=== PATIENT | male | born 1950 | race Caucasian/White ===

== ENCOUNTER → 2016-09-14 | Outpatient (CLI) | payer MEDICARE, OTHER ==
[~2016-09-14] MED LIST: ASPIRIN EC81 MG PO; AVODART0.5 MG PO; COLACE100 MG PO; COZAAR100 MG PO; CYMBALTA30 MG PO; CYMBALTA60 MG PO; EFFEXOR XR75 MG PO; GLUCOPHAGE XR500 M1 PO; HYZAAR 100-251 EACH PO; PERCOCET 5-3251 EACH PO; PRILOSEC20 MG PO; TOPROL XL25 MG PO; TYLENOL EXTRA500 MG PO
== END | disposition disaster alternative care site (69) ==
LOC: GRAD 10:55
DX: C64.9 Malignant neoplasm of unspecified kidney, except renal pelvis (principal); R91.8 Other nonspecific abnormal finding of lung field

== ENCOUNTER 2016-10-14 07:42 | Outpatient (CLI) | payer MEDICARE, OTHER ==
[~2016-10-14] VITALS: Ht 180.3 cm; Wt 93.7 kg
--- NOTE | ~2016-10-14 | CATH ---
Cardiac Diagnostic Report Demographics Patient Name LINA Diaz Gender Male Date of 1950 Age 66 year(s) Patient Number [id number] Date of Study 10/14/2016 Visit Number [id number] Room Number G6399 Corporate ID Ht 180.34 cm Wt 93.4 kg Referring Jamarcus Saini MD Primary Physician Physician Performing Yerra Secondary Physician Physician Rosio Diagnostic Aldairrra Assisting Physician Physician Rosio Interventional Physician Hydro Technician Physician Findings and Conclusions Diagnostic Findings and Conclusion Left Main: No significant epicardial disease LAD: Proximal 20% stenosis L Cx: Dominant large caliber vessel. Proximal circumflex artery appears ectatic. RCA: non dominant. No significant epicardial disease Slow flow was noted in all 3 vessels. Diagnostic Recommendations CAD risk factor medication. Procedure Description The patient was brought to the diagnostic cardiac catheterization-EP laboratory in the fasting, non-sedated state. Informed consent was obtained in the written and verbal form after the risks and benefits were explained. The patient had no further questions and agreed to proceed. The planned puncture-incision site(s) were shaved and prepped with ChloraPrep and draped in the usual sterile manner. Conscious sedation, supplemental oxygen, and pain control medications were delivered by a registered nurse under physician guidance. Surface ECG rhythm, blood pressure measurement, and pulse oximetry were monitored throughout the procedure. Arterial access. The access site on right wrist was infiltrated with lidocaine. The vessel was entered with the Seldinger technique. A sheath was advanced into the vessel and used for catheter placement. Selective left coronary angiography. A catheter was advanced into the left coronary vessel ostium under Fluoroscopic guidance. Contrast was injected by hand. Images were obtained in multiple projections. Selective right coronary angiography. A catheter was advanced into the right coronary vessel ostium under fluoroscopic guidance. Contrast was injected by hand. Images were obtained in multiple projections. Arterial artery hemostasis was achieved. The patient was transferred to a regular nursing floor via cart accompanied by a nurse. The patient left the laboratory in stable condition. Diagnostic Cath Status: Elective Procedure Procedure Type Diagnostic procedure:Angiography:, Coronary Angios Indications: Chest pain. The procedure was explained in detail to the patient. Risks, complications and alternative treatments were reviewed. Written consent was obtained. Medications Reviewed with Patient prior to Procedure. Angiographic Findings Dominance: Left Cardiac Arteries and Lesion Findings LMCA: Normal (0% Stenosis).OK - slow flow LAD: Proximal 20%-slow flow Lesion on Prox LAD: Proximal subsection.20% stenosis . LCx: Proxiaml ectatic large caliber- slow flow RCA: Non dominant, slow flow Coronary Tree Procedure Data Procedure Date Date: 10/14/2016Start: 09:53 AMEnd: 10:21 AM Entry Locations - Retrograde Percutaneous access was performed through the Right Radial artery (Primary location). A 6 Fr sheath was inserted. Hemostasis was successfully obtained using Mechanical Compression. Closure Comments: 13cc's of air in R-band applied by Oscar Oliver Procedure Medications Order and Administration + + + + + !Time !Medication !Dosage !Route ! + + + + + !10/14/2016 09:47 AM !Versed !1 mg !I.V. ! + + + + + !10/14/2016 09:52 AM !Oxygen !2 l/min !NC ! + + + + + !10/14/2016 09:59 AM !Radial Nitroglycerin !200 mcg !I.A. ! + + + + + !10/14/2016 09:59 AM !Radial Verapamil !2.5 mg !I.A. ! + + + + + !10/14/2016 10:00 AM !Heparin (ACC_3) !4000 units !I.V. bolus ! + + + + + Devices Used - A5 Fr. BS JR 4 Diag. Catheterwas used for:Right coronary angiography. - A5 Fr. BS JL 3.5 Diag. Catheterwas used for:Left coronary angiography. Contrast Material - Isovue 11661 ml Fluoroscopy Time: Diagnostic: 2:48 minutes. Total: 2:48 minutes. Fluoroscopy Dose: Diagnostic: 977 mGy. Total: 977 mGy. Estimated Blood Loss: 10 ml. Medical History Allergies - Other:(FishOil). Risk Factors The patient risk factors include:treated and uncontrolled hypertension, orally-treated diabetes mellitus, last creatinine: 1.1 mg/dl, creatinine clearance: 87.27 ml/min and former tobacco use. Admission Data Admission Date: 10/14/2016 Admission Time: 07:42 AM Insurance Payors: Medicare. Admission Medications + +------+-------+ + + + + !Medication!Dosage!Times !Last !Last !Administered !Comments ! ! ! !Per Day!Delivery !Delivery ! ! ! ! ! ! !Date !Time ! ! ! + +------+-------+ + + + + !Aspirin ! ! ! ! !Yes ! ! !(any) ! ! ! ! ! ! ! + +------+-------+ + + + + Clinical Evaluation Leading to Procedure Diagnosed on 10/14/2016 09:45 AM. - The patient's CAD presentation was assessed as: Unstable angina. - The patient's anginal syndrome during the past two weeks was assessed as: Class II according to the [place] Cardiovascular [employer] Classification System (CCS). Anti-anginal medications were prescribed during the past two weeks. The medications are: Long Acting Nitrates and Other. Hemodynamics Condition: Rest O2 Consumption: Estimated: 253.12Heart Rate: 75 bpm Pressures (mmHg) +-----+ + !Site !Pressure ! +-----+ + !AO !97/67 (81) ! +-----+ + Shunts Oxygen Values O2 Capacity 218.96 O2 Consumption 253.12 Signatures dtt: ROSIO JONES dtd: 10/14/16 0953 Physician Self Edit
[2016-10-14 08:21] LABS: BASOPHIL # 0.1 K/uL (0.0-0.2); EOSINOPHIL # 0.3 K/uL (0.0-0.5); HEMATOCRIT 46.4 % (37.0-53.0); HEMOGLOBIN 16.1 g/dL (11.0-16.0); IMMATURE GRANULOCYTE % 0.4 %; LYMPHOCYTE # 1.8 K/uL (0.8-4.0); LYMPHOCYTE % 25.2 %; MCH 31.4 pg (27.0-34.0); MCHC 34.7 gm/dL (32.0-36.5); MCV 90.6 fl (83.0-98.0); MONOCYTE # 0.8 K/uL (0.0-1.0); MONOCYTE % 10.4 %; MPV 9.1 fl (9.4-12.4); NEUTROPHIL # (ANC) 4.3 K/uL (1.4-9.0); NRBC % 0 /100WBC (0-0.00); PLATELET COUNT 183 K/uL (150-450); RBC 5.12 M/uL (3.50-5.50); RDW-CV 12.3 % (11.9-14.6); WBC 7.2 K/uL (4.0-11.0)
[2016-10-14 08:39] LABS: ALBUMIN 3.8 gm/dL (3.5-5.0); ANION GAP 10.5 (10.0-19.0); CALCIUM 8.6 mg/dL (8.5-10.5); CREATININE 1.1 mg/dL (0.6-1.3); POTASSIUM 3.5 mMol/L (3.7-5.1); TOTAL PROTEIN 7.3 g/dL (6.0-8.4)
[2016-10-14 08:40] LABS: INR - (THERAPEUTIC) 1.05 (0.92-1.07); PTT 29 SECONDS (25-32)
== END 2016-10-14 13:25 | disposition disaster alternative care site (69) ==
LOC: GCAT 07:42 → GPCU 07:42 → GPOC 08:00 → GCAT 13:25
PROVIDERS: Internal Medicine Interventional Cardiology
PROC: 4A023N7 Measurement of Cardiac Sampling and Pressure, Left Heart, Percutaneous Approach (ICD-10-PCS; principal; 2016-10-14)
PROC: B216YZZ Fluoroscopy of Right and Left Heart using Other Contrast (ICD-10-PCS; 2016-10-14)
DX: R07.9 Chest pain, unspecified (principal)
CPT/HCPCS: J1644; J2001; J2250; J3010; J7030